=== PATIENT | female | born 1985 | race Caucasian/White ===

== ENCOUNTER 2017-11-27 08:11 | Inpatient (IN) | payer BC ==
[2017-11-27] MEDS ORDERED: PROMETHAZINE 25 MG/ML VIAL IV PRN (08:15)
[2017-11-27] MEDS ORDERED: Ringers Lactate 1,000 ML IV PRN (08:15)
[2017-11-27] MEDS ORDERED: BUTORPHANOL 1 MG/ML INJ IV PRN (08:15)
[2017-11-27] MEDS ORDERED: OXYTOCIN/LR 20 UNIT/1,000 ML BAG IV SCH ×2 (09:00→14:00)
[2017-11-27] MEDS ORDERED: Ringers Lactate 1,000 ML IV SCH (09:00)
[2017-11-27 09:42] LABS: RPR Titer ND
[2017-11-27 09:43] LABS: Absolute Lymphocytes (CBC) 1.7 K/uL (0.7-4.9); Absolute Monocytes 0.5 K/uL (0.1-1.3); Absolute Neutrophil 6.6 K/uL (1.8-8.0); Basophils % 0.2 % (0-1.3); Eosinophils % 0.9 % (0-4.4); Hematocrit 33.8 % (36.0-45.0); Lymphocytes % 18.5 % (15.3-44.8); MCV 92.2 fL (80-100); MPV 8.2 fL (7.6-11.3); Monocytes % 6.1 % (3.3-12.3); RBC Red Blood Cell Count 3.67 M/uL (3.86-4.86)
[2017-11-27 09:47] VITALS: BMI 30.7
[2017-11-27] MEDS ORDERED: INFLUENZA VACCINE (for 3y+) 0.5 ML DOSE IMVAC ONE (10:00)
[2017-11-27] MEDS ORDERED: FENTANYL CITR 100 MCG/2 ML IV ONE (11:06)
[2017-11-27] MEDS ORDERED: ROPIVACAINE HCL 100 ML IV PRN (11:06)
[2017-11-27] MEDS ORDERED: ROPIVACAINE HCL 0.2% 20ML AMP SQ ONE (11:06)
[2017-11-27] MEDS ORDERED: METHYLERGONOVINE 0.2MG/ML AMP IM ONE (13:04)
[2017-11-27] MEDS ORDERED: CARBOPROST TROME 250 MCG/ML IM ONE (13:04)
--- NOTE | 2017-11-27 13:29 | PREOPHP ---
Date of Admission: 11/27/2017 History Of Present Illness: Ms. López is a 32-year-old female, 3, para 2- 0-0-2, now at 39+ weeks gestation. She noticed onset of contractions and spontaneous rupture membran es this morning approximately 5:30. She presents to Labor and Delivery for evaluation, where spontan eous rupture is confirmed. Past Medical History: Please see record. Family History: Please see record. Review of Systems: She reports no recent cough, cold, fever, or chills. No recent nausea or vomiting. She denies any b reast lumps or knots. She denies any bowel or bladder issues. Infant has been active. Physical Examination: General: Reveals pleasant female, in no apparent distress. Neck: Supple without adenopathy or thyromegaly. Lungs: Clear. Cardiac: Regular rate and rhythm without murmurs. Breasts: Not examined. Abdomen: Estimated weight of 7+ pounds. Pelvic: Cervix noted to be 75% effaced, vertex presentation. Cervix dilated 1 cm mid position. Extremities: No cyanosis, clubbing, or edema. Impression: A 39+ week , spontaneous premature rupture membranes, anxiety. Plan: The patient is admitted. Will be augmented with Pitocin. GUADALUPE/TRACY Voice ID: [id number]
[2017-11-27] MEDS ORDERED: CARBOPROST TROME 250 MCG/ML IM PRN (13:49)
[2017-11-27] MEDS ORDERED: ACETAMINOPHEN 500 MG TAB PO PRN (13:49)
[2017-11-27] MEDS ORDERED: ONDANSETRON 4 MG (ODT) TAB PO PRN (13:49)
--- NOTE | 2017-11-27 13:52 | P.BOP ---
Preoperative diagnosis: 39 week Postoperative diagnosis: delivery viable male Primary procedure: SCVD Secondary procedure: repair 2 degree midline laceration Estimated blood loss: less than 300ml Anesthesia: epidural Complications: None Transferred to: Other (274) Condition: Good
[2017-11-27] MEDS: IBUPROFEN 200 MG TAB PO PRN (17:34)
[2017-11-27 22:22] LABS: RPR (Rapid Plasma Reagin) NON-REACT (NON-REACT)
[2017-11-28] MEDS ORDERED: IBUPROFEN 400 MG TAB ONE (04:41)
[2017-11-28] MEDS: IBUPROFEN 200 MG TAB PO PRN ×2 (04:50→12:55)
[2017-11-28] MEDS ORDERED: FLUOXETINE 20 MG CAP PO SCH (09:00)
[2017-11-28] MEDS ORDERED: Tdap (Diph,Pertuss(Acell),Tet Vac) 0.5 ML SYR IMVAC ONE (11:53)
[2017-11-28] MEDS ORDERED: INFLUENZA VACCINE (for 3y+) 0.5 ML DOSE IMVAC ONE (13:00)
[2017-11-28 13:34] VITALS: BP 126/67; TEMP 97.5
--- NOTE | 2017-11-28 17:04 | OP ---
Surgeon: Wisam Andersen MD Ms. López is a 32-year-old female, 3, para 2-0-0-2 at 39 weeks gestation, admitted with spontaneous rupture of membranes, not in active labor. After augmentation with Pitocin , she had first stage of labor of 8 hours, second stage of labor of 17 minutes. She delivered by spo ntaneous controlled vaginal delivery an 8 pounds 3 ounce male infant, 8 and 9. After delayed c ord clamping, this was clamped to cut and the placed on mother's upper abdomen. Cord blood wa s obtained. The placenta was spontaneously expelled and appeared to be intact. She had epidural cat heter placement early in her course of labor, after 1 dose of 1 mg of Stadol, 12.5 mg of Phenergan fo r analgesia. She received excellent benefit from this. She suffered a small second-degree midline p erineal laceration which was repaired in the usual fashion with 3-0 Vicryl suture. Estimated total b lood loss was less than 300 cc. The patient tolerated all procedures well. GUADALUPE/TRACY Voice ID: [id number] Report ID: [id number]
--- NOTE | 2017-11-29 04:40 | DS ---
Date of Discharge: 11/28/2017 Final Hospital Discharge Diagnoses: A 39-week , spontaneous premature rupture of membranes. Complications: None. Procedures: Pitocin augmentation of labor, spontaneous controlled vaginal delivery of viable male in willy, repair of midline second-degree perineal laceration, placement of epidural catheter. Hospital Course: The patient is a 32-year-old female, 3, para2-0-0-2 at ap proximately 39 weeks gestation, admitted with spontaneous rupture of membranes. She was induced/augm ented with Pitocin and delivered an 8-pound 3-ounce male infant, 8 and 9 with epidural anesthes ia. She was dismissed on her first day, ambulatory, on a select diet with routine post-va ginal-delivery activity restrictions to be seen back in my office in 2 weeks. She had admission hemo globin and hematocrit of 12.1 and 33.8, dismissal of 34.5. She had a negative nonreactive RPR. She is Rh-positive blood type. She was dismissed to take ibuprofen for pain relief, to continue taking h er iron and vitamins. She will be seen back in my office in 2 weeks to be closely monitored for depression. She will continue her iron and vitamins and Prozac. GUADALUPE/TRACY Voice ID: [id number] Report ID: [id number]
[2017-11-30 03:50] LABS: HBsAG Nonreactive (Nonreactive)
== END 2017-11-28 16:25 | disposition home or self-care (01) | DRG 807 ==
LOC: 2ND-WC 08:11
PROVIDERS: ADMIT Specialist; ATTEND Specialist
PROC: 10E0XZZ Delivery of Products of Conception, External Approach (ICD-10-PCS; principal; 2017-11-27)
PROC: 0KQM0ZZ Repair Perineum Muscle, Open Approach (ICD-10-PCS; 2017-11-27)
DX: O42.02 Full-term premature rupture of membranes, onset of labor within 24 hours of rupture (principal); Z37.0 Single live birth; Z3A.39 39 weeks gestation of pregnancy; O99.344 Other mental disorders complicating childbirth; F41.9 Anxiety disorder, unspecified; O70.1 Second degree perineal laceration during delivery
CPT/HCPCS: 36415; 85014; 85025; 86592; 86901; 87340; 90715; J0595; J2210; J2550; J2590; J2795; J3010; Q2035

== ENCOUNTER 2019-10-06 07:29 | Inpatient (IN) | payer BC ==
[2019-10-09] MEDS ORDERED: BUTORPHANOL 1 MG/ML INJ IV PRN (15:26)
[2019-10-09] MEDS ORDERED: PROMETHAZINE INJ 25 MG/ML AMP IM PRN (15:26)
[2019-10-09] MEDS ORDERED: Ringers Lactate 1,000 ML IV PRN (15:26)
[2019-10-09] MEDS ORDERED: METHYLERGONOVINE 0.2MG/ML AMP IM PRN (15:26)
[2019-10-09] MEDS ORDERED: CARBOPROST TROME 250 MCG/ML IM PRN (15:26)
[2019-10-09] MEDS ORDERED: miSOPROStoL 100 MCG TAB PO PRN ×2 (15:30→17:00)
[2019-10-09] MEDS ORDERED: ZOLPIDEM TARTRATE 10 MG TABLET PO ONE (15:45)
[2019-10-09] MEDS ORDERED: Ringers Lactate 1,000 ML IV SCH (16:00)
[2019-10-09 16:11] VITALS: BMI 31.6
[2019-10-09 16:37] LABS: Absolute Lymphocytes (CBC) 1.9 K/uL (0.7-4.9); Basophils % 0.2 % (0-1.3); Hematocrit 34.2 % (36.0-45.0); Lymphocytes % 20.9 % (15.3-44.8); MPV 7.9 fL (7.6-11.3); RBC Red Blood Cell Count 3.73 M/uL (3.86-4.86)
--- NOTE | 2019-10-09 18:26 | RAD REPORT ---
EXAM DESCRIPTION: US - OB Limited - 10/09/2019 5:48 pm CLINICAL HISTORY: presentation COMPARISON: OB Complete dated 07/03/2019 FINDINGS: Limited Ob examination was performed with the request of establishing presentation. Single cephalic presenting gestation is identified. Heart rate is 139 BPM.
[2019-10-09 18:32] LABS: Urine Appearance CLEAR; Urine Bilirubin NEGATIVE (NEG); Urine Blood NEGATIVE (NEG); Urine Color YELLOW; Urine Glucose NEGATIVE (NEG); Urine Protein NEGATIVE (NEG); Urine Urobilinogen 0.2 mg/dL (0.2-1.0); Urine pH 6.5 (5.0-7.0)
[2019-10-09 18:56] LABS: Urine Microscopic Reflex NO UMIC
--- NOTE | 2019-10-09 19:54 | PREOPHP ---
Date of Admission: 10/09/2019 A 34-year-old 4, para 3, 39 weeks 3 days, followed antepartum without complications. Rh posi tive, immune to rubella. Negative beta strep screen. Negative COVID status. The patient is about 1 to 1.5, very posterior. Baby is fair, well applied to the cervix. Options given including expectan t management and see her again on Sunday. There is no way we could strip membranes today to try to a ccelerate the process. Regular Pitocin induction discussed as well. The patient has opted for Cytot ec stimulation. Full discussion in the office several times. 25 mcg of Cytotec inserted, 1/4 of a t ablet. We will insert 1/4 of a tablet every 6 hours up to 3 doses if needed. Hopefully, by tomorrow morning, her cervix will be more favorable and then we can begin the regular Pitocin induction and r upture membranes at that point. Full labor talk given. MARTELL/TRACY Voice ID: [id number]
[2019-10-09] MEDS ORDERED: ZOLPIDEM TARTRATE 10 MG TABLET PO PRN (21:00)
[2019-10-09 23:24] LABS: RPR (Rapid Plasma Reagin) NON-REACT (NON-REACT)
[2019-10-10] MEDS ORDERED: ROPIVACAINE HCL 100 ML IV PRN (03:18)
[2019-10-10] MEDS ORDERED: FENTANYL CITR 100 MCG/2 ML IV ONE (03:18)
[2019-10-10] MEDS ORDERED: ROPIVACAINE HCL 0.2% 20ML AMP SQ ONE (03:19)
[2019-10-10] MEDS ORDERED: OXYTOCIN/LR 20 UNIT/1,000 ML BAG IV ONE (03:24)
[2019-10-10] MEDS ORDERED: METHYLERGONOVINE 0.2MG/ML AMP IM ONE ×2 (03:25→07:12)
[2019-10-10] MEDS ORDERED: CARBOPROST TROME 250 MCG/ML IM ONE (03:25)
[2019-10-10] MEDS ORDERED: LIDOCAINE 1% MPF 30 ML VIAL ONE (03:25)
--- NOTE | 2019-10-10 06:10 | OP ---
Surgeon: Cl Pappas MD Parris López is a 34-year-old 4, para 3, at 39 weeks 3 days had Cytotec 25 mcg inserted yes terday afternoon and 1 other dose after that, went to a very active labor. Stadol IV, Phenergan IM i nitially and then epidural anesthesia went rapidly to complete after achieving 5-6 cm. Second stage of basically 1 group of pushes, 8 pounds 5-ounce male . Nuchal cord x2 loosely. Apgars 8 and 9. Very small first-degree laceration repaired with 3-0 chromic 3 stitches. Schultze delivery of th e placenta inspected and noted to be intact and normal 350 cc blood loss. Rh positive. Immune to Ru bailey. Negative beta strep screen. Negative COVID. Final Diagnoses: Term intrauterine 39 weeks 3 days, Cytotec insertion, delayed delivery at 39 weeks 4 days, epidural anesthesia, nuchal cord x2. MARTELL/YANIRAL Voice ID: [id number] Report ID: [id number]
[2019-10-10] MEDS ORDERED: ACETAMINOPHEN 500 MG TAB PO PRN (08:54)
[2019-10-10] MEDS ORDERED: Tdap (Diph,Pertuss(Acell),Tet Vac) 0.5 ML SYR IMVAC ONE (08:54)
[2019-10-10] MEDS ORDERED: ACETAMINOPHEN 500 MG TAB ONE (09:13)
[2019-10-10] MEDS: METHYLERGONOVINE 0.2 MG TAB PO PRN ×4 (11:25→23:46)
[2019-10-10] MEDS: IBUPROFEN 600 MG TAB PO PRN (13:50)
[2019-10-10] MEDS ORDERED: Ringers Lactate 1,000 ML IV ONE (17:28)
[2019-10-10] MEDS: Oxycodone HCl/Acetaminophen 1 TAB TAB PO PRN (18:35)
[2019-10-11] MEDS: IBUPROFEN 600 MG TAB PO PRN (03:34)
[2019-10-11] MEDS: Oxycodone HCl/Acetaminophen 1 TAB TAB PO PRN (03:40)
[2019-10-11] MEDS: METHYLERGONOVINE 0.2 MG TAB PO PRN (03:40)
[2019-10-11] MEDS ORDERED: Tdap (Diph,Pertuss(Acell),Tet Vac) 0.5 ML SYR IMVAC ONE (08:07)
--- NOTE | 2019-10-11 08:08 | DS ---
A 34-year-old 4, para 3, 39 weeks 4 days at the time of delivery. Cytotec 25 mcg inserted th e evening prior to delivery, 1 second dose and the patient then went to a very active labor, went rap idly to complete. Epidural anesthesia. Delivered quickly of an 8 pounds 5 ounces male , s 8 and 9. First degree laceration sutured with 3 stitches running lock 3 0 chromic. Karine webb of the placenta was inspected and noted to be intact and normal. 350 cc blood loss. Beta strep negative. , afebrile, ambulating and voiding. Lochia is normal. Requests no analgesics o n dismissal. Report back to my office in 6 weeks for followup. Final Diagnoses: Term intrauterine at 39 weeks 3 days, Cytotec insertion, vaginal delivery at 39 weeks 4 days, epidural anesthesia. MARTELL/TRACY Voice ID: [id number] Report ID: [id number]
[2019-10-11 11:03] VITALS: TEMP 96.5
[2019-10-11 11:11] VITALS: BP 132/74
[2019-10-14 21:05] LABS: HBsAG Nonreactive (Nonreactive)
== END 2019-10-11 09:00 | disposition home or self-care (01) | DRG 807 ==
LOC: 2ND-WC 10-09 15:27
PROVIDERS: ADMIT Specialist; ATTEND Specialist
PROC: 10E0XZZ Delivery of Products of Conception, External Approach (ICD-10-PCS; principal; 2019-10-10)
PROC: 0HQ9XZZ Repair Perineum Skin, External Approach (ICD-10-PCS; 2019-10-10)
PROC: 3E0P7VZ Introduction of Hormone into Female Reproductive, Via Natural or Artificial Opening (ICD-10-PCS; 2019-10-10)
PROC: 10907ZC Drainage of Amniotic Fluid, Therapeutic from Products of Conception, Via Natural or Artificial Opening (ICD-10-PCS; 2019-10-10)
DX: O70.0 First degree perineal laceration during delivery (principal); Z37.0 Single live birth; Z3A.39 39 weeks gestation of pregnancy; Z23 Encounter for immunization; Z11.59 Encounter for screening for other viral diseases
CPT/HCPCS: 36415; 76815; 81003; 85025; 86592; 86850; 86900; 86901; 87340; 90471; 90715; J0595; J2210; J2550; J2590; J2795; J3010; J7120